=== PATIENT | male | born 1930 | race Caucasian/White ===

== ENCOUNTER 2016-06-09 16:30 | Outpatient (CLI) ==
[2016-06-09 17:43] LABS: BASOPHILS % (AUTO) 0.4 % (0.0-3.0); EOSINOPHILS # (AUTO) 0.1 K/ul (0.0-0.7); EOSINOPHILS % (AUTO) 1.6 % (0.0-7.0); HEMOGLOBIN 15.5 g/dl (14.0-18.0); IMMATURE GRANULOCYTE % (AUTO) 0.4 % (0.0-5.0); LYMPHOCYTES # (AUTO) 1.2 K/uL (0.60-3.4); LYMPHOCYTES % (AUTO) 16.2 (10.0-50.0); MEAN CORPUSCULAR HEMOGLOBIN 32.7 pg (27.0-31.0); MEAN CORPUSCULAR HGB CONC 34.4 (31.8-35.4); MEAN CORPUSCULAR VOLUME 94.9 fl (80.0-94.0); MONOCYTES # (AUTO) 0.6 K/uL (0.4-2.0); MONOCYTES % (AUTO) 7.9 (0-10); NEUTROPHILS # (AUTO) 5.4 K/ul (2.0-6.9); NEUTROPHILS % (AUTO) 73.5; PLATELET COUNT 248 10^3/uL (140-440); RED BLOOD COUNT 4.74 10^6/ul (4.70-6.10); WHITE BLOOD COUNT 7.36 K/ul (4.2-10.2)
[2016-06-09 17:51] LABS: BILIRUBIN,URINE Negative (NEGATIVE); KETONES,URINE Negative (NEGATIVE); LEUKOCYTE ESTERASE ,URINE Negative (NEGATIVE); NITRITE,URINE Negative (NEGATIVE); PH,URINE 5.5 (5-9); PROTEIN,URINE Negative (NEGATIVE); URINE, BLOOD Negative (NEGATIVE)
[2016-06-09 17:53] LABS: ADD URINE MICROSCOPIC NO
[2016-06-09 18:12] LABS: ALBUMIN 3.5 g/dL (3.4-5.0); ALBUMIN/GLOBULIN RATIO 1.25; ANION GAP 10.9; BILIRUBIN,TOTAL 0.68 mg/dL (0.00-1.20); BUN/CREATININE RATIO 25.24; CHOL/HDL RATIO 2.7 (4.5-6.4); CREATININE 1.03 mg/dL (0.60-1.10); POTASSIUM 3.9 mmol/L (3.5-5.1); TOTAL PROTEIN 6.3 g/dL (5.8-8.1)
== END 2016-06-09 16:31 | disposition home or self-care (01) ==
LOC: LAB 16:30
PROVIDERS: ATTEND General Practice
DX: I10 Essential (primary) hypertension (principal); R73.03 Prediabetes; I73.9 Peripheral vascular disease, unspecified; R73.9 Hyperglycemia, unspecified; Z79.899 Other long term (current) drug therapy
CPT/HCPCS: 36415; 80053; 80061; 81001; 83036; 85025

== ENCOUNTER 2016-10-06 12:17 | Outpatient (CLI) ==
[2016-10-06 13:20] LABS: BASOPHILS % (AUTO) 0.4 % (0.0-3.0); EOSINOPHILS # (AUTO) 0.3 K/ul (0.0-0.7); EOSINOPHILS % (AUTO) 3.5 % (0.0-7.0); HEMATOCRIT 44.2 % (42.0-52.0); HEMOGLOBIN 15.2 g/dl (14.0-18.0); IMMATURE GRANULOCYTE % (AUTO) 0.3 % (0.0-5.0); LYMPHOCYTES # (AUTO) 1.3 K/uL (0.60-3.4); LYMPHOCYTES % (AUTO) 17.6 (10.0-50.0); MEAN CORPUSCULAR HEMOGLOBIN 32.7 pg (27.0-31.0); MEAN CORPUSCULAR HGB CONC 34.4 (31.8-35.4); MEAN CORPUSCULAR VOLUME 95.1 fl (80.0-94.0); MONOCYTES # (AUTO) 0.5 K/uL (0.4-2.0); MONOCYTES % (AUTO) 7.1 (0-10); NEUTROPHILS # (AUTO) 5.2 K/ul (2.0-6.9); NEUTROPHILS % (AUTO) 71.1; PLATELET COUNT 186 10^3/uL (140-440); RED BLOOD COUNT 4.65 10^6/ul (4.70-6.10); WHITE BLOOD COUNT 7.33 K/ul (4.2-10.2)
[2016-10-06 13:37] LABS: ALBUMIN 3.4 g/dL (3.4-5.0); ALBUMIN/GLOBULIN RATIO 1.17; ANION GAP 13.5; BILIRUBIN,TOTAL 0.81 mg/dL (0.00-1.20); BUN/CREATININE RATIO 22.82; CALCIUM 9.8 mg/dL (8.2-10.2); CHOL/HDL RATIO 3.1 (4.5-6.4); CREATININE 0.92 mg/dL (0.60-1.10); POTASSIUM 4.5 mmol/L (3.5-5.1); TOTAL PROTEIN 6.3 g/dL (5.8-8.1)
[2016-10-06 18:08] LABS: BILIRUBIN,URINE Negative (NEGATIVE); KETONES,URINE Negative (NEGATIVE); LEUKOCYTE ESTERASE ,URINE Negative (NEGATIVE); NITRITE,URINE Negative (NEGATIVE); PH,URINE 6.5 (5-9); PROTEIN,URINE Negative (NEGATIVE); URINE, BLOOD Negative (NEGATIVE)
[2016-10-06 18:16] LABS: ADD URINE MICROSCOPIC NO
== END 2016-10-06 12:18 | disposition home or self-care (01) ==
LOC: LAB 12:17
PROVIDERS: ATTEND General Practice
DX: I10 Essential (primary) hypertension (principal); R73.03 Prediabetes; I73.9 Peripheral vascular disease, unspecified; E53.8 Deficiency of other specified B group vitamins; H91.93 Unspecified hearing loss, bilateral; M17.11 Unilateral primary osteoarthritis, right knee; M54.9 Dorsalgia, unspecified; Z79.899 Other long term (current) drug therapy
CPT/HCPCS: 36415; 80053; 80061; 81001; 85025

== ENCOUNTER 2017-02-05 14:37 | Outpatient (CLI) ==
[2017-02-05 14:55] LABS: BASOPHILS % (AUTO) 0.5 % (0.0-3.0); EOSINOPHILS # (AUTO) 0.2 K/ul (0.0-0.7); EOSINOPHILS % (AUTO) 4.2 % (0.0-7.0); HEMATOCRIT 45.4 % (42.0-52.0); HEMOGLOBIN 15.6 g/dl (14.0-18.0); IMMATURE GRANULOCYTE % (AUTO) 0.2 % (0.0-5.0); LYMPHOCYTES # (AUTO) 1.1 K/uL (0.60-3.4); LYMPHOCYTES % (AUTO) 20.5 (10.0-50.0); MEAN CORPUSCULAR HEMOGLOBIN 33.1 pg (27.0-31.0); MEAN CORPUSCULAR HGB CONC 34.4 (31.8-35.4); MEAN CORPUSCULAR VOLUME 96.2 fl (80.0-94.0); MONOCYTES # (AUTO) 0.5 K/uL (0.4-2.0); MONOCYTES % (AUTO) 9.3 (0-10); NEUTROPHILS # (AUTO) 3.6 K/ul (2.0-6.9); NEUTROPHILS % (AUTO) 65.3; PLATELET COUNT 213 10^3/uL (140-440); RED BLOOD COUNT 4.72 10^6/ul (4.70-6.10); WHITE BLOOD COUNT 5.46 K/ul (4.2-10.2)
[2017-02-05 14:57] LABS: BILIRUBIN,URINE Negative (NEGATIVE); KETONES,URINE Negative (NEGATIVE); LEUKOCYTE ESTERASE ,URINE Negative (NEGATIVE); NITRITE,URINE Negative (NEGATIVE); PROTEIN,URINE Negative (NEGATIVE); URINE, BLOOD Negative (NEGATIVE)
[2017-02-05 15:01] LABS: ADD URINE MICROSCOPIC NO
[2017-02-05 15:07] LABS: ALBUMIN 3.3 g/dL (3.4-5.0); ALBUMIN/GLOBULIN RATIO 1.06; ANION GAP 12.6; BILIRUBIN,TOTAL 0.83 mg/dL (0.00-1.20); BUN/CREATININE RATIO 24.46; CALCIUM 10.1 mg/dL (8.2-10.2); CREATININE 0.94 mg/dL (0.60-1.10); POTASSIUM 4.6 mmol/L (3.5-5.1); TOTAL PROTEIN 6.4 g/dL (5.8-8.1)
== END 2017-02-05 14:38 | disposition home or self-care (01) ==
LOC: LAB 14:37
PROVIDERS: ATTEND General Practice
DX: I10 Essential (primary) hypertension (principal); I73.9 Peripheral vascular disease, unspecified; R73.03 Prediabetes; Z79.899 Other long term (current) drug therapy
CPT/HCPCS: 36415; 80053; 81001; 85025

== ENCOUNTER 2017-06-09 14:21 | Outpatient (CLI) | payer OTHER | END 2017-06-09 14:22 | disposition home or self-care (01) | LOC: LAB 14:21 | PROVIDERS: ATTEND General Practice | DX: R73.03 Prediabetes (principal); I10 Essential (primary) hypertension; E53.8 Deficiency of other specified B group vitamins; R73.9 Hyperglycemia, unspecified; Z79.899 Other long term (current) drug therapy; Z12.5 Encounter for screening for malignant neoplasm of prostate | CPT/HCPCS: 36415; 80053; 80061; 81001; 85025 ==

== ENCOUNTER 2017-06-12 14:27 | Outpatient (CLI) | payer OTHER ==
--- NOTE | 2017-06-12 14:47 | DI ---
Exam: Two x-rays of the chest. Comparison: 08/03/2013. Reason for exam: Chest pain. FINDINGS: No pneumothorax or pleural effusion. There is blunting of both costophrenic angles with p atchy airspace opacities bilaterally and flattening of the hemidiaphragms. The aorta is tortuous wit hin the thorax. Degenerative disease is seen throughout the thorax with osteophyte formation. Impression: Similar appearing basilar atelectasis/pneumonia in the setting of suspected chronic lung disease.
== END 2017-06-12 14:28 | disposition home or self-care (01) ==
LOC: RAD 14:27
PROVIDERS: ATTEND General Practice
DX: R07.89 Other chest pain (principal)

== ENCOUNTER 2017-07-22 09:13 | Outpatient (CLI) ==
[2017-06-24 18:43] VITALS: BMI 23.8
== END 2017-07-22 09:14 | disposition home or self-care (01) ==
LOC: WOUND 09:13
PROVIDERS: ATTEND Nurse Practitioner Family
DX: L89.893 Pressure ulcer of other site, stage 3 (principal); I10 Essential (primary) hypertension; N18.9 Chronic kidney disease, unspecified

== ENCOUNTER 2017-07-29 09:48 | Outpatient (CLI) | payer OTHER ==
[2017-06-24 18:43] VITALS: BMI 23.8
== END 2017-07-29 09:49 | disposition home or self-care (01) ==
LOC: WOUND 09:48
PROVIDERS: ATTEND Nurse Practitioner Family
DX: L89.893 Pressure ulcer of other site, stage 3 (principal); I10 Essential (primary) hypertension; N18.9 Chronic kidney disease, unspecified
CPT/HCPCS: 11042

== ENCOUNTER 2017-08-05 09:19 | Outpatient (CLI) ==
[2017-06-24 18:43] VITALS: BMI 23.8
== END 2017-08-05 09:20 | disposition home or self-care (01) ==
LOC: WOUND 09:19
PROVIDERS: ATTEND Nurse Practitioner Family
DX: L89.893 Pressure ulcer of other site, stage 3 (principal); I10 Essential (primary) hypertension; N18.9 Chronic kidney disease, unspecified
CPT/HCPCS: 11042

== ENCOUNTER 2017-08-12 09:20 | Outpatient (CLI) | payer OTHER ==
[2017-06-24 18:43] VITALS: BMI 23.8
== END 2017-08-12 09:21 | disposition home or self-care (01) ==
LOC: WOUND 09:20
PROVIDERS: ATTEND Nurse Practitioner Family
DX: L89.893 Pressure ulcer of other site, stage 3 (principal); I10 Essential (primary) hypertension; N18.9 Chronic kidney disease, unspecified
CPT/HCPCS: 11042

== ENCOUNTER 2017-08-19 09:18 | Outpatient (CLI) ==
[2017-06-24 18:43] VITALS: BMI 23.8
== END 2017-08-19 09:19 | disposition home or self-care (01) ==
LOC: WOUND 09:18
PROVIDERS: ATTEND Nurse Practitioner Family
DX: L89.893 Pressure ulcer of other site, stage 3 (principal); I10 Essential (primary) hypertension; N18.9 Chronic kidney disease, unspecified
CPT/HCPCS: 11042; 87070

== ENCOUNTER 2017-08-26 09:14 | Outpatient (CLI) ==
[2017-06-24 18:43] VITALS: BMI 23.8
--- NOTE | 2017-08-26 11:02 | DI ---
EXAM: Four views of the left toes. History: Left toe pressure ulcer. Findings: Atherosclerotic vascular calcifications. No acute fracture or dislocation. There is subc utaneous edema and question soft tissue air within the first digit. No jignesh cortical destruction id entified to suggest osteomyelitis. Impression: 1. No definite radiographic evidence for osteomyelitis. 2. Subcutaneous edema and question soft tissue air within the first digit. 3. If there is concern for osteomyelitis, consider correlation with nuclear medicine study or MRI. 4. Atherosclerotic vascular disease
== END 2017-08-26 09:15 | disposition home or self-care (01) ==
LOC: WOUND 09:14
PROVIDERS: ATTEND Nurse Practitioner Family
DX: L89.893 Pressure ulcer of other site, stage 3 (principal); I10 Essential (primary) hypertension; N18.9 Chronic kidney disease, unspecified

== ENCOUNTER 2017-09-02 09:30 | Outpatient (CLI) ==
[2017-06-24 18:43] VITALS: BMI 23.8
== END 2017-09-02 09:31 | disposition home or self-care (01) ==
LOC: WOUND 09:30
PROVIDERS: ATTEND Nurse Practitioner Family
DX: L89.893 Pressure ulcer of other site, stage 3 (principal); I10 Essential (primary) hypertension; N18.9 Chronic kidney disease, unspecified
CPT/HCPCS: 11042

== ENCOUNTER 2017-09-16 09:16 | Outpatient (CLI) | payer OTHER ==
[2017-06-24 18:43] VITALS: BMI 23.8
== END 2017-09-16 09:17 | disposition home or self-care (01) ==
LOC: WOUND 09:16
PROVIDERS: ATTEND Nurse Practitioner Family
DX: L89.893 Pressure ulcer of other site, stage 3 (principal); I10 Essential (primary) hypertension; N18.9 Chronic kidney disease, unspecified
CPT/HCPCS: 11042

== ENCOUNTER 2017-09-23 09:57 | Outpatient (CLI) | payer OTHER ==
[2017-06-24 18:43] VITALS: BMI 23.8
== END 2017-09-23 09:58 | disposition home or self-care (01) ==
LOC: WOUND 09:57
PROVIDERS: ATTEND Nurse Practitioner Family
DX: L89.893 Pressure ulcer of other site, stage 3 (principal); I10 Essential (primary) hypertension; N18.9 Chronic kidney disease, unspecified
CPT/HCPCS: 36415; 80053; 80061; 85025; 99213

== ENCOUNTER 2017-09-30 09:56 | Outpatient (CLI) ==
[2017-06-24 18:43] VITALS: BMI 23.8
== END 2017-09-30 09:57 | disposition home or self-care (01) ==
LOC: WOUND 09:56
PROVIDERS: ATTEND Nurse Practitioner Family
DX: L89.893 Pressure ulcer of other site, stage 3 (principal); I10 Essential (primary) hypertension; N18.9 Chronic kidney disease, unspecified
CPT/HCPCS: 99211; 99213

== ENCOUNTER 2018-01-26 14:20 | Outpatient (CLI) | payer OTHER ==
[2017-06-24 18:43] VITALS: BMI 23.8
--- NOTE | 2018-01-26 15:00 | CT ---
EXAM: CT of the head without contrast History: Ataxia Comparison: None available. Technique: Multiplanar CT images through the head were obtained without the administration of IV con trast Findings: The visualized paranasal sinuses and mastoid air cells are clear in general. No acute yajaira varial abnormalities. Intracranially the ventricular and cisternal spaces are normal in size, shape and configuration for a patient of this age. No dominant mass or midline shift. No hydrocephalous. No acute intracranial hemorrhage or abnormal extraaxial fluid collections. Impression: No acute intracranial process
== END 2018-01-26 14:21 | disposition home or self-care (01) ==
LOC: RAD 14:20
PROVIDERS: ATTEND General Practice
DX: R26.89 Other abnormalities of gait and mobility (principal)

== ENCOUNTER 2018-05-10 14:31 | Outpatient (CLI) | payer OTHER ==
[2017-06-24 18:43] VITALS: BMI 23.8
== END 2018-05-10 14:32 | disposition home or self-care (01) ==
LOC: LAB 14:31
PROVIDERS: ATTEND General Practice
DX: I73.9 Peripheral vascular disease, unspecified (principal); I10 Essential (primary) hypertension; R73.03 Prediabetes; E53.8 Deficiency of other specified B group vitamins; Z79.899 Other long term (current) drug therapy
CPT/HCPCS: 36415; 80053; 80061; 81001; 85025

== ENCOUNTER 2018-05-14 15:11 | Outpatient (CLI) ==
[2017-06-24 18:43] VITALS: BMI 23.8
== END 2018-05-14 15:12 | disposition home or self-care (01) ==
LOC: LAB 15:11
PROVIDERS: ATTEND General Practice
DX: I49.9 Cardiac arrhythmia, unspecified (principal); Z79.899 Other long term (current) drug therapy
CPT/HCPCS: 93005; 93010

== ENCOUNTER 2018-09-26 18:30 | Inpatient (IN) ==
--- NOTE | 2018-09-26 19:24 | CT ---
EXAM: CT chest without contrast. HISTORY: Cough and fever. PROCEDURE: Contiguous axial CT images of the chest without contrast with coronal and sagittal reform ats. FINDINGS: The heart is within normal limits in size. The thoracic aorta is within normal limits in d iameter. There are calcified mediastinal and hilar lymph nodes. There is left basilar consolidation , consistent with pneumonia. There is minimal right basilar atelectasis and/or pneumonia. There are degenerative changes in the spine. Impression: Left basilar consolidation, consistent with pneumonia. Minimal right basilar atelectasis and/or pneumonia.
--- NOTE | 2018-09-26 19:36 | ED.PDOC ---
General ED Provider: Dr. TAE POE-ER Chief Complaint: Weakness Stated Complaint: hes had fever, cough and weakness Time Seen by Physician: 18:45 Mode of Arrival: Wheelchair Information Source: Patient, Family Exam Limitations: No limitations Primary Care Provider: [facility] Nursing and Triage Documentation Reviewed and Agree: Yes Does patient meet sepsis criteria?: No System Inflammatory Response Syndrome: Not Applicable Sepsis Protocol: For patient's 13 years and over: Temp is 96.8 and below OR 101 and greater Pulse >90 BPM Resp >20/minute Acutely Altered Mental Status Are patient's symptoms suggestive of a new infection, such as: -Pneumonia -Skin, Soft Tissue -Endocarditis -UTI -Bone, Joint Infection -Implantable Device -Acute Abdominal Infection -Wound Infection -Meningitis -Blood Stream Catheter Infection -Unknown Respiratory Complaint Exam - Respiratory Complaint/Exam Onset/Duration: 3 days Symptoms Are: Still present Timing: Constant Initial Severity: Mild Current Severity: Mild Location: Chest Character: Reports: Non-productive cough Aggravating: Reports: URI Alleviating: Reports: None. Denies: Spontaneous resolution Associated Signs and Symptoms: Reports: Fever, URI. Denies: Rapid breathing, Dyspnea Home Oxygen Use: No Recent Stress Test: No Recent Echo/LV Function: No Current Antibiotic Use: No Current Asthma Medication Use: No Respiratory Distress: None Inadequate Respiratory Effort: No Dysphagia Present: No Stridor Present: No JVD Present: No Accessory Muscle Use: No Retractions: Not Present Diminished Breath Sounds: No Sinus Tenderness: None Grunting Respirations: No Kussmaul Respirations: No Differential Diagnoses: Pneumonia Non-Traumatic Chest Pain Syncope: EKG Performed Review of Systems - Review Of Systems Constitutional: Reports: Chills, Fever, Weakness Eyes: Reports: No symptoms Ears, Nose, Mouth, Throat: Reports: No symptoms Respiratory: Reports: Cough Cardiac: Reports: No symptoms GI: Reports: No symptoms : Reports: No symptoms Musculoskeletal: Reports: No symptoms Skin: Reports: No symptoms Neurological: Reports: No symptoms, Weakness Endocrine: Reports: No symptoms Hematologic/Lymphatic: Reports: No symptoms All Other Systems: Reviewed and Negative Past Medical History - Past Medical History Previously Healthy: No Endocrine: Reports: Unknown, Other Cardiovascular: Reports: Unknown Respiratory: Reports: Unknown Hematological: Reports: Unknown Gastrointestinal: Reports: Unknown Genitourinary: Reports: Unknown Neuro/Psych: Reports: Unknown Musculoskeletal: Reports: Unknown Cancer: Reports: Unknown - Surgical History General Surgical History: Reports: Unknown - Family History Family History: Reports: Unknown - Social History Smoking Status: Never smoker Hx Substance Use: No Alcohol Screening: None Physical Exam - Physical Exam Appearance: Well-appearing, No pain distress, Well-nourished Eyes: MINESH, EOMI, Conjunctiva clear ENT: Ears normal, Nose normal, Oropharynx normal Neck: Supple Respiratory: Crackles, Rhonchi Cardiovascular: RRR, Pulses normal, No rub, No murmur GI/: Soft, Nontender, No masses, Bowel sounds normal, No Organomegaly Musculoskeletal: Normal strength Skin: Warm, Dry, Normal color Neurological: Sensation intact Psychiatric: Affect appropriate, Mood appropriate Interpretation - Radiology Interpretation Radiology Interpretation By: Radiologist Radiology Results: Positive Exam Interpreted: CT Scan - EKG Interpretation Time of EKG #1: 19:36 Rate: Normal Rhythm: Sinus Ectopy: None [place]: NL ST Segment: Normal Interpretation: nsr Physician Notification - Case Discussed Physician Notified: dr shelby Time of Notification: 19:37 Critical Care Note - Critical Care Note Total Time (mins): 0 Course - Course Hematology/Chemistry: 09/26/18 18:53 09/26/18 18:53 Orders, Labs, Meds: Lab Review 09/26/18 09/26/18 09/26/18 18:43 18:53 18:53 WBC 16.26 H RBC 4.53 L Hgb 14.6 Hct 42.3 MCV 93.4 MCH 32.2 H MCHC 34.5 RDW Coeff of Jordyn 13.2 Plt Count 170 Immature Gran % (Auto) 0.9 Neut % (Auto) 88.6 Lymph % (Auto) 2.8 L [place] % (Auto) 7.5 Eos % (Auto) 0.1 Baso % (Auto) 0.1 Immature Gran # (Auto) 0.2 Neut # (Auto) 14.4 H Lymph # (Auto) 0.5 L [place] # (Auto) 1.2 Eos # (Auto) 0.0 Baso # (Auto) 0.0 Puncture Site Rbrach O2 Saturation 94.0 L ABG pH 7.482 H ABG pCO2 27.4 L ABG pO2 63.0 L ABG HCO3 20.5 L ABG Total CO2 21 L ABG Base Excess -3 L Nathony Test + FiO2 % 21.0 Sodium 131.6 L Potassium 3.97 Chloride 98.8 Carbon Dioxide 21.9 L Anion Gap 14.87 BUN 18.1 Creatinine 0.93 Estimated GFR (MDRD) 77.00 BUN/Creatinine Ratio 19.46 Glucose 154.3 H Lactic Acid Calcium 9.02 Total Bilirubin 0.95 AST 26.9 ALT 20.5 Alkaline Phosphatase 65.5 Total Creatine Kinase CK-MB (CK-2) CK-MB (CK-2) % Troponin I Total Protein 6.50 Albumin 3.61 Globulin 2.89 Albumin/Globulin Ratio 1.24 Procalcitonin 09/26/18 09/26/18 09/26/18 18:53 18:53 18:53 WBC RBC Hgb Hct MCV MCH MCHC RDW Coeff of Jordyn Plt Count Immature Gran % (Auto) Neut % (Auto) Lymph % (Auto) [place] % (Auto) Eos % (Auto) Baso % (Auto) Immature Gran # (Auto) Neut # (Auto) Lymph # (Auto) [place] # (Auto) Eos # (Auto) Baso # (Auto) Puncture Site O2 Saturation ABG pH ABG pCO2 ABG pO2 ABG HCO3 ABG Total CO2 ABG Base Excess Anthony Test FiO2 % Sodium Potassium Chloride Carbon Dioxide Anion Gap BUN Creatinine Estimated GFR (MDRD) BUN/Creatinine Ratio Glucose Lactic Acid 1.86 Calcium Total Bilirubin AST ALT Alkaline Phosphatase Total Creatine Kinase 126.1 CK-MB (CK-2) 2.450 H CK-MB (CK-2) % 1.9400 Troponin I < 0.012 Total Protein Albumin Globulin Albumin/Globulin Ratio Procalcitonin 0.35 Orders Category Date Time Status ADMIT PATIENT INPATIENT .TO [facility] (MONITORED BED) ADMISSION 09/26/18 19: 38 Active ABG DRAW REQUEST Stat CARDIO 09/26/18 18:43 Completed EKG-(ED ONLY) Stat CARDIO 09/26/18 18:43 Completed NEBULIZER TREATMENT Stat CARDIO 09/26/18 19:41 Ordered OXYGEN Routine CARDIO 09/26/18 19:39 Ordered ACTIVITY .BR with BRP CARE 09/26/18 19:39 Active INTAKE & OUTPUT Q8HR CARE 09/26/18 19:39 Active TELEMETRY MONITORING TELE CARE 09/26/18 19:38 Active VITAL SIGNS Q4HR CARE 09/26/18 19:39 Active VITAL SIGNS Q8HR CARE 09/26/18 19:39 Active REGULAR DIET DIETARY 09/26/18 Breakfast Ordered ED APPLIANCE ADJUSTER APPLIED .ONCE EMERGENCY 09/26/18 18:43 Active ED IV/MEDIPORT/POWERPORT .ONCE EMERGENCY 09/26/18 18:43 Active ABG Stat LAB 09/26/18 18:43 Completed BLOOD CULTURE (ED ONLY) Stat LAB 09/26/18 18:53 Received CBC W/ AUTO DIFF DAILY@0600 LAB 09/27/18 06:00 Ordered CBC W/ AUTO DIFF DAILY@0600 LAB 09/28/18 06:00 Ordered CBC W/ AUTO DIFF Stat LAB 09/26/18 18:53 Completed COMPREHENSIVE METABOLIC PANEL DAILY@0600 LAB 09/27/18 06:00 Ordered COMPREHENSIVE METABOLIC PANEL DAILY@0600 LAB 09/28/18 06:00 Ordered COMPREHENSIVE METABOLIC PANEL Stat LAB 09/26/18 18:53 Completed CREATINE KINASE Stat LAB 09/26/18 18:53 Completed LACTIC ACID Stat LAB 09/26/18 18:53 Completed PROCALCITONIN Stat LAB 09/26/18 18:53 Completed TROPONIN I Stat LAB 09/26/18 18:53 Completed URINALYSIS C & S IF INDICATED Stat LAB 09/26/18 18:43 Uncollected 0.9 % Sodium Chloride [Saline Flush] MEDS 09/26/18 18:43 Active 1 syr IVF PRN PRN Acetaminophen [Tylenol] MEDS 09/26/18 19:39 Ordered 650 mg PO Q4H PRN Albuterol Sulfate 0.042% Neb [Albuterol 0.042% Neb] MEDS 09/26/18 21:00 Ordered 1 vial NEB QID Aspirin [Aspirin EC] MEDS 09/27/18 09:00 Ordered 81 mg PO DAILY Ceftriaxone 1 gm Vial [Rocephin 1 gm Vial] 1 gm MEDS 09/26/18 20:00 Ordered 0.9 % Sodium Chloride [Sodium Chloride] 50 ml IV DAILY Diclofenac Sodium MEDS 09/27/18 09:00 Ordered 75 mg PO DAILY Donepezil HCl [Aricept] MEDS 09/27/18 09:00 Ordered 10 mg PO DAILY Doxycycline Hyclate Inj [Doxy-100] 100 mg MEDS 09/26/18 21:00 Ordered 0.9 % Sodium Chloride [Sodium Chloride] 100 ml IV Q12HR Enoxaparin Sodium [Lovenox] MEDS 07/22/19 09:00 Ordered 40 mg SUBCUT DAILY Gabapentin [Neurontin] MEDS 09/26/18 21:00 Ordered 200 mg PO BID Losartan Potassium [Losartan Potassium] MEDS 09/26/18 21:00 Ordered 50 mg PO BID Memantine HCl [Namenda] MEDS 09/26/18 21:00 Ordered 10 mg PO BID Metoprolol Tartrate [Lopressor] MEDS 09/26/18 21:00 Ordered 12.5 mg PO BID Sodium Chloride 0.9% [Sodium Chloride] 1,000 ml MEDS 09/26/18 20:00 Ordered IV 40 mls/hr RESUSCITATION STATUS Routine OTHERS 09/26/18 19:[address] CHEST W/O CONTRAST Stat RADS 09/26/18 18:44 Completed Medications Generic Name Dose Route Start Last Admin Trade Name Freq PRN Reason Stop Dose Admin Acetaminophen 650 mg 09/26/18 19:39 Tylenol PO Q4H PRN Mild Pain Albuterol Sulfate 1 vial 09/26/18 21:00 Albuterol 0.042% Neb NEB QID DARIO Aspirin 81 mg 09/27/18 09:00 Aspirin Ec PO DAILY [facility] Diclofenac Sodium 75 mg 09/27/18 09:00 Diclofenac Sodium PO DAILY [facility] Donepezil HCl 10 mg 09/27/18 09:00 Aricept PO DAILY [facility] Enoxaparin Sodium 40 mg 09/27/18 09:00 Lovenox SUBCUT DAILY [facility] Gabapentin 200 mg 09/26/18 21:00 Neurontin PO BID [facility] Ceftriaxone Sodium 1 gm/ 50 mls @ 75 mls/hr 09/26/18 20:00 Sodium Chloride IV 09/29/18 19:59 DAILY DARIO Doxycycline Hyclate 100 mg/ 100 mls @ 50 mls/hr 09/26/18 21:00 Sodium Chloride IV 09/29/18 20:59 Q12HR DARIO Sodium Chloride 1,000 mls @ 40 mls/hr 09/26/18 20:00 Sodium Chloride IV .Q25H DARIO Memantine 10 mg 09/26/18 21:00 Namenda PO BID DARIO Metoprolol Tartrate 12.5 mg 09/26/18 21:00 Lopressor PO BID [facility] Non-Formulary Medication 50 mg 09/26/18 21:00 Losartan Potassium [Losartan Potassium] PO BID DARIO Sodium Chloride 1 syr 09/26/18 18:43 Saline Flush IVF PRN PRN To flush IV Vital Signs: Temp Pulse Resp BP Pulse Ox 09/26/18 18:31 99.8 F H 87 20 139/77 92 L Departure - Departure Time of Disposition: 19:37 Disposition: ADMITTED INPATIENT Discharge Problem: Pneumonia Qualifiers: Pneumonia type: due to unspecified organism Laterality: left Lung location: lower lobe of lung Qualified Code(s): J18.1 - Lobar pneumonia, unspecified organism Instructions: Community Acquired Pneumonia (ED) Condition: Good Pt referred to PMD for follow-up: Yes IPMP verified?: No Allergies/Adverse Reactions: Allergies No Known Allergies Allergy (Verified 09/26/18 18:38) Home Medications: Ambulatory Orders Aspirin [Aspir 81] 81 mg PO DAILY 01/08/15 Donepezil HCl 10 mg PO DAILY 01/08/15 Memantine HCl 10 mg PO BID 01/08/15 Multivitamin [Multi-Vitamin Daily] 1 each PO DAILY 01/08/15 Diclofenac Sodium 75 mg PO DAILY tab-cap 06/12/17 Metoprolol Tartrate [Lopressor] 12.5 mg PO BID 09/26/18 Disposition Discussed With: Patient, Family
[2018-09-26] MEDS ORDERED: TYLENOL PO PRN (19:39)
[2018-09-26] MEDS ORDERED: ROCEPHIN 1 GM VIAL 1 GM in SODIUM CHLORIDE 50 ML IV SCH (20:00)
[2018-09-26] MEDS ORDERED: SODIUM CHLORIDE 1,000 ML IV SCH (20:00)
[2018-09-26] MEDS ORDERED: ROCEPHIN 1 GM VIAL ONE (21:18)
[2018-09-26 21:25] VITALS: BMI 24.5
[2018-09-26] MEDS: COZAAR PO SCH (21:30)
[2018-09-26] MEDS: NEURONTIN PO SCH (21:30)
[2018-09-26] MEDS: LOPRESSOR PO SCH (21:30)
[2018-09-26] MEDS: NAMENDA PO SCH (21:30)
[2018-09-26] MEDS: DOXY-100 100 MG in SODIUM CHLORIDE 100 ML IV SCH (21:31)
[2018-09-26] MEDS ORDERED: ROCEPHIN 1 GM/50 ML D5W 1 GM in PREMIX 50 ML D5W 1 BAG IV STA (21:45)
[2018-09-26] MEDS: ALBUTEROL 0.042% NEB NEB SCH (21:55)
[2018-09-27] MEDS ORDERED: ROCEPHIN 1 GM/50 ML D5W 1 GM in PREMIX 50 ML D5W 1 BAG IV STA (02:59)
[2018-09-27] MEDS ORDERED: ROCEPHIN 1 GM/50 ML D5W 50 ML IV ONE (03:44)
[2018-09-27] MEDS: ALBUTEROL 0.042% NEB NEB SCH ×4 (04:50→20:45)
[2018-09-27] MEDS ORDERED: DICLOFENAC SODIUM PO SCH (09:00)
[2018-09-27] MEDS: ROCEPHIN 2 GM/50 ML D5W 2 GM in PREMIX 50 ML D5W 1 BAG IV SCH (09:27)
[2018-09-27] MEDS: ASPIRIN EC PO SCH (09:30)
[2018-09-27] MEDS: LOPRESSOR PO SCH ×2 (09:31→21:15)
[2018-09-27] MEDS: NAMENDA PO SCH ×2 (09:31→21:16)
[2018-09-27] MEDS: NEURONTIN PO SCH ×2 (09:31→21:15)
[2018-09-27] MEDS: ARICEPT PO SCH (09:32)
[2018-09-27] MEDS: COZAAR PO SCH ×2 (09:32→21:14)
[2018-09-27] MEDS: LOVENOX SUBCUT SCH (09:34)
[2018-09-27] MEDS: DOXY-100 100 MG in SODIUM CHLORIDE 100 ML IV SCH ×2 (10:18→21:19)
--- NOTE | 2018-09-27 11:49 | RS.PTINEVL ---
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 pt is willing to try with PT. - Level of function Prior to this admission, the patient could do the following:: Independent Selfcare, Independent ADL's, Independent Ambulation, Drive Current Level of Function: Partially Dependent Current Equipment Used at Home: cane, rollling walker. Interventions - Objective Patient Orientation: Person, Place, Time, Situation Current Interventions: IV's, Telemetry Observation: pt with erythema noted to L lower leg Range of Motion - ROM Right Upper Extremity AROM: WFL's Left Upper Extremity AROM: WFL's Right Lower Extremity AROM: WFL's Left Lower Extremity AROM: Moderate limitation (L knee fused into ext.) Muscle Strength - Muscle Strength Right Upper Extremity Strength: Mild Weakness (grossly 4/5) Left Upper Extremity Strength: Mild Weakness (grossly 4/5) Right Lower Extremity Strength: Mild Weakness (hip flex 4/5, knee flex/ext 4+/5 , ankle DF/PF 4/5) Left Lower Extremity Strength: Mild Weakness (hip flex 4/5, knee flex 0, ext 4/5 , ankle DF/PF 4/5) Sensation - Sensation Right Upper Extremity Sensation: Intact/Normal Left Upper Extremity Sensation: Intact/Normal Right Lower Extremity Sensation: Intact/Normal Left Lower Extremity Sensation: Intact/Normal Palpation Palpation Findings: None/Normal Balance - Sitting Balance and Reactions Static Sitting Balance: Fair Dynamic Sitting Balance: Fair - Standing Balance and Reactions Static Standing Balance: Poor Dynamic Standing Balance: Poor Standing Equilibrium Reactions: Delayed Left, Delayed Right Standing Protective Reactions: Delayed Left, Delayed Right Functional Mobility - Bed Mobility Rolling R/L: CGA Supine to Sit: CGA - Transfers Sit to Stand: Min Assist, 2 person assist Stand to Sit: Min Assist, 2 person assist - Safety Awareness Safety Awareness: Fair SHER INDEX SCORE: n/a Ambulation - Ambulation Assistive Device Used: Rolling Walker Orthotic/Prosthetic Device: No Distance: 20ft Assistance needed with Ambulation: Min Assist, 2 person assist Gait Deviations: Forward posture, Short stride, Deviates from path Ambulation Comments: pt amb with flexed posture, decreased step length. pt amb with R hip hiking due to no knee flex due to knee fused. Factors Affecting Ambulation: Decreased Balance, Weakness, Decreased ROM, Decreased Safety, Limited Endurance Treatment time - Time with patient Length of Evaluation: 21 Total treatment time: 24 Patient Education - Education Patient Education: Activity Modification, Education of Plan of Care Teaching Recipient: Patient Teaching Methods: Discussion (discussion regarding POC) Assessment - Assessment Problem List:: Decreased level of function, Requires training/education, Decreased safety/Risk of falls, Weakness Rehab Potential: Good Further Therapy Indicated?: Yes Candidate for Swing Bed for Therapy Services?: Would need to reassess pt at a later date Evaluation Complexity: HISTORY: Medium, EXAM OF BODY SYSTEMS: Medium, CLINICAL PRESENTATION: Medium, CLINICAL DECISION MAKING: Medium Short Term Goals GOAL #1: pt demonstrate independence with rolling and scooting in bed Goal to be met by: 09/29/18 GOAL #2: pt transfer sup to/from sit SBA Goal to be met by: 09/29/18 GOAL #3: Transfer sit to/from stand min to CGA x 1 Goal to be met by: 09/29/18 GOAL #4: pt amb with rwx 75ft with CGA to min x 1 Goal to be met by: 09/29/18 Therapeutic Recreation Assistant Goals GOAL #1: pt ascend/descend 2 steps to enter home CGA Goal to be met by: 10/01/18 GOAL #2: pt amb functional household distance with rwx SBA Goal to be met by: 10/01/18 GOAL #3: pt transfer sit to/from stand SBA Goal to be met by: 10/01/18 Plan Plan of Care: Therapeutic EX, Therapeutic Activity Other:: gait training Frequency of Treatment: 1-2 X day, as tolerated Duration of Treatment: 5 days Anticipated Discharge Destination: Home Treatment Diagnosis (ICD 10 Codes): R 26.2 difficulty walking. R 26.81 balance impaired Has the Physician been added for Co-signature?: Yes
--- NOTE | 2018-09-27 13:48 | RS.OTINEVL ---
Subjective - Patient information Date of Evaluation: 09/27/18 Date of Arrival on Unit: 09/26/18 Diagnosis: Pneumonia, SOA, Weakness PRECAUTIONS: At risk for falls. SOA, WEakness Usual Living Arrangement: Alone Living Arrangement Comments: Pt lives alone. He is able to drive to the store and complete his shopping independently before his illness. Pt has a house keeper that helps him with cleaning. Home Environment: House, Stairs (few), No rail Medical History: Hypertension Medical History Comments:: Pt had prostate CA 10 years ago. Cholecystectomy, [place] , hearing aids, HTN, glasses, spasms in the right ribs Surgical History: Knee Replacement, Other Surgical History Comments:: Pt has had several surgeries on his Left knee and has a vijay in it now. Pt now cannot flex his knee. Pt had prostate CA surgery 10 years ago. Pt had left groing hernia repair, - Level of function Prior to this admission, the patient could do the following:: Independent Selfcare, Independent ADL's, Independent Ambulation, Drive Abilities prior to this admission: Pt was able to ambulate better and was stronger before this last illness. Pt feels he is very weak and needs assistance for functional mobility. Current Level of Function: Partially Dependent Current Equipment Used at Home: cane, rollling walker. Pain Assessment - Pain Pain Score: 0 Interventions - Objective Patient Orientation: Person, Place, Time, Situation Current Interventions: IV's, Telemetry Observation: Pt is weak and takes extra time to ambulate with RW. Pt becomes SOA with functional mobility and self cares. Interventions - ROM Right Upper Extremity AROM: WFL's Left Upper Extremity AROM: WFL's - Strength Right Upper Extremity Strength: Mild Weakness Left Upper Extremity Strength: Mild Weakness - Sensation Right Upper Extremity Sensation: Intact/Normal Left Upper Extremity Sensation: Intact/Normal Balance - Sitting Balance Static Sitting Balance: Fair Dynamic Sitting Balance: Fair - Standing Balance Static Standing Balance: Poor Dynamic Standing Balance: Poor ADL Skills - Self Feeding Self Feeding: Independent - Grooming Grooming: Supervision - Bathing Bathing UE: Set Up Only Bathing LE: Supervision - Dressing Dressing UE: Set Up Only Dressing LE: Min Assist - Toilet Management Toileting Management: Min Assist Functional Mobility - Bed Mobility Rolling R/L: Independent Scooting: Independent Supine to Sit: CGA Sit to Supine: CGA - Transfers Sit to Stand: Mod Assist Stand to Sit: Mod Assist Stand Pivot Transfers: Mod Assist - Ambulation Weight Bearing Status: FWB Assistive Device Used: Rolling Walker Assistance needed with Ambulation: Mod Assist - Safety Awareness Safety Awareness: Fair SHER INDEX SCORE: . Additional Treatment Performed - Time with patient Length of Evaluation: 20 Total treatment time: 26 Activities Would you enjoy group activities?: Yes Do you have difficulty with your vision?: Yes What types of things do you enjoy doing? Any Hobbies?: TV, Work on Cars Patient Interests:: Watching Television, Visiting/Socializing Patient Education Patient Education: Education of diagnosis, Home Exercise Program, Home Safety, Education of Plan of Care Teaching Recipient: Patient Teaching Methods: Demonstration Assessment Problem List:: Decreased level of function, Requires training/education, Decreased safety/Risk of falls, Weakness Rehab Potential: Good Further Therapy Indicated?: Yes Evaluation Complexity: HISTORY: Medium, EXAM OF BODY SYSTEMS: Medium, CLINICAL DECISION MAKING: Medium Short Term Goals - Goals GOAL 1: Pt to increase BUE strength to 4/5. Goal to be met by: 09/30/18 GOAL 2: Pt to increase sit to stand to Min A. with RW. Goal to be met by: 09/30/18 GOAL 3: Pt to be CGA with self cares. Goal to be met by: 09/30/18 Fdc Goals GOAL 1: Pt to increase BUE strength to 4+/5. Goal to be met by: 10/04/18 GOAL 2: Pt to increase sit to stand to Mod-I with RW. Goal to be met by: 10/04/18 GOAL 3: Pt to be modified (I) with self cares. Goal to be met by: 10/04/18 Plan Plan of Care: Therapeutic EX, Neuromuscular Re-Educ, Therapeutic Activity, Self- Care/Home Management Frequency of Treatment: 1-2 X day, as tolerated Duration of Treatment: 1 Week Anticipated Discharge Destination: Home Treatment Diagnosis (ICD 10 Codes): M62.81 Muscle weakness, Z74.1 Need for assistance with personal care. Has the Physician been added for Co-signature?: Yes
[2018-09-27] MEDS ORDERED: VANCOMYCIN 1,000 MG in SODIUM CHLORIDE 200 ML IV SCH (22:00)
[2018-09-27] MEDS ORDERED: VANCOMYCIN 1.5 GM in SODIUM CHLORIDE 500 ML IV SCH (23:00)
[2018-09-28] MEDS: ALBUTEROL 0.042% NEB NEB SCH ×4 (04:55→20:11)
[2018-09-28] MEDS: ROCEPHIN 2 GM/50 ML D5W 2 GM in PREMIX 50 ML D5W 1 BAG IV SCH (08:42)
[2018-09-28] MEDS: NAMENDA PO SCH ×2 (08:42→14:45)
[2018-09-28] MEDS: COZAAR PO SCH ×2 (08:42→20:12)
[2018-09-28] MEDS: ASPIRIN EC PO SCH (08:42)
[2018-09-28] MEDS: LOPRESSOR PO SCH ×2 (08:42→20:11)
[2018-09-28] MEDS: NEURONTIN PO SCH ×2 (08:42→20:11)
[2018-09-28] MEDS: ARICEPT PO SCH (08:42)
[2018-09-28] MEDS: LOVENOX SUBCUT SCH (08:43)
--- NOTE | 2018-09-28 10:20 | PN ---
DATE OF SERVICE: 09/27/18 SUBJECTIVE: 88 year old male was admitted to the hospital because of pneumonia left side and minimal right. The patient does have some rales at both bases fine. No expiratory wheezing. HEART: Audible and slightly irregular. The patient is on Telemetry The patient claims that he is feeling better. The left leg however is warm to touch and red. This patient has an intramedullary vijay that stabilizes the knee. 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 It is warm to touch and red compared to the right. I am not sure whether this infection is coming from. An x-ray of the leg, ankle and foot is order today. There is no skin breaks noted. The patient is receiving Ceftriaxone 2 grams every 24 hours and Doxycycline 100mg Q 12 hours. His sugar was in a controlled level. Fasting today is 139.2. Procalcitonin on admission was 0.35. We will obtain another Procalcitonin today because of the swelling and redness of the left leg and foot. I am concerned about the left leg and he may need to be transferred to another facility for this problem. His EGFR is 68 today. We will probably discontinue the Doxycycline and given him Vancomycin 1gram Q 12 hours. We will see if this will improve the problem in the left leg. СВЕТЛАНА
--- NOTE | 2018-09-28 14:14 | DI ---
EXAM: Three views of the left knee. History: Left knee pain and swelling. Findings: No acute fracture or dislocation. Osteopenia. Some type of stimulator device is seen in place. Hardware is seen traversing the left knee joint with osseous effusion. Nonspecific soft tiss ue calcifications. There are also atherosclerotic vascular calcifications. Surgical clips are seen within the lower pelvis. There is skin thickening along the medial aspect of the leg. Impression: No acute osseous abnormality. Other findings as detailed above
--- NOTE | 2018-09-28 14:15 | DI ---
EXAM: LEFT ANKLE 3 VIEWS HISTORY: Redness and warmth FINDINGS: Bones are significantly demineralized. Partial visualization of distal tibial intramedull marely stabilization hardware which appears intact. There is no acute fracture identified. No joint ef fusion or evidence of bony destruction. Soft tissues reveal vascular calcifications although were ot herwise grossly within normal limits radiographically. IMPRESSION: 1. No obvious acute radiographic findings.
--- NOTE | 2018-09-28 14:20 | DI ---
EXAM: LEFT FOOT, 3 VIEWS HISTORY: Redness and warmth FINDINGS: Compared to 06/24/2017. Bones are significantly demineralized. Diffuse arthropathy is no efra most apparent at the mid foot dorsally where there is bony spurring. No displaced fracture or roberto int dislocation is seen. There is no joint effusion or soft tissue radiopaque foreign body/gas colle ction. IMPRESSION: 1. Demineralization and arthropathy.
--- NOTE | 2018-09-28 14:37 | DI ---
EXAM: Two views of the left tibia and fibula. History: Left leg pain and swelling. Findings: Grossly intact hardware seen traversing the left knee joint. Osteopenia. No acute fractu re or dislocation. Hypertrophic osseous changes involving the medial and lateral malleolus compatibl e with old ligamentous injury. Atherosclerotic vascular calcifications. Soft tissue calcifications are seen at the knee. There is mild diffuse subcutaneous edema. Impression: 1. No acute osseous findings. 2. Mild diffuse subcutaneous edema. 3. Grossly intact hardware. 4. Atherosclerotic vascular disease
[2018-09-28] MEDS: VANCOMYCIN 1.5 GM in SODIUM CHLORIDE 500 ML IV SCH (20:11)
[2018-09-29] MEDS: ALBUTEROL 0.042% NEB NEB SCH ×4 (04:34→20:05)
[2018-09-29] MEDS: LOPRESSOR PO SCH ×2 (08:26→20:39)
[2018-09-29] MEDS: ROCEPHIN 2 GM/50 ML D5W 2 GM in PREMIX 50 ML D5W 1 BAG IV SCH (08:27)
[2018-09-29] MEDS: ARICEPT PO SCH (08:27)
[2018-09-29] MEDS: NEURONTIN PO SCH ×2 (08:27→20:39)
[2018-09-29] MEDS: COZAAR PO SCH ×2 (08:27→20:40)
[2018-09-29] MEDS: LOVENOX SUBCUT SCH (08:28)
[2018-09-29] MEDS: NAMENDA PO SCH ×2 (09:00→13:56)
--- NOTE | 2018-09-29 13:38 | US ---
EXAM: ULTRASOUND LOWER EXTREMITY VENOUS DOPPLER EXAM HISTORY: Pain and tenderness. FINDINGS: Left lower extremity venous Doppler exam. Real time thomson-scale, Doppler spectral analysis and color-flow Doppler imaging performed. The veins targeted for evaluation include the common femo ral, greater saphenous, profundus, femoral, popliteal, peroneal, anterior tibial and posterior tibial . The evaluated veins demonstrated normal spontaneous flow and compression without evidence of thr ombosis. IMPRESSION: No venous thrombosis identified within the areas evaluated.
--- NOTE | 2018-09-29 14:44 | PN ---
DATE OF SERVICE: 09/26/18 ADMISSION NOTES SUBJECTIVE: The patient did not feel well since about three days ago. He felt bad and coughed and fever. He had pain on the right lateral chest wall, lower. The patient had shortness of breath on exertion and just not able to get up and quite weak this morning. He was then brought to to the emergency room and the patient was noted to have a low grade temperature 99.8. The fever at home was as high as 101.5. The patient is alert and somewhat jittery. He does recognize me. LUNGS: Rales at the left base. No wheezing. HEART: Audible and regular with good tones. The patient does not have a urinalysis at this time. WBC is moderately elevated and the Procalcitonin still is within unremarkable limits. The patient had 1 gram of Rocephin in the emergency room and also Doxycycline Q 12 hours. The patient denies any tick bite. Rocephin will be increased to 2 grams daily. His EGFR is 77. Pneumonitis left lower lobe. MTDD
[2018-09-29] MEDS: VANCOMYCIN 1.5 GM in SODIUM CHLORIDE 500 ML IV SCH (20:38)
[2018-09-29] MEDS: ASPIRIN EC PO SCH (20:39)
[2018-09-30] MEDS: ALBUTEROL 0.042% NEB NEB SCH ×4 (04:45→20:15)
[2018-09-30] MEDS: ARICEPT PO SCH (08:15)
[2018-09-30] MEDS: NEURONTIN PO SCH ×2 (08:16→20:47)
[2018-09-30] MEDS: COZAAR PO SCH ×2 (08:16→20:47)
[2018-09-30] MEDS: NAMENDA PO SCH ×2 (08:16→14:56)
[2018-09-30] MEDS: LOPRESSOR PO SCH ×2 (08:16→20:47)
[2018-09-30] MEDS: LOVENOX SUBCUT SCH (08:16)
[2018-09-30] MEDS ORDERED: ROCEPHIN 2 GM/50 ML D5W 2 GM in PREMIX 50 ML D5W 1 BAG IV SCH (09:00)
--- NOTE | 2018-09-30 11:05 | HP ---
DATE OF SERVICE: 09/26/18 CHIEF COMPLAINT: Weakness. HISTORY OF PRESENT ILLNESS: Per review of ER records, Dr. Briones on September 26, 2018, the patient arrived to the Emergency Department with complaint of weakness. He also reported fever and cough. He arrived per wheelchair with the patient's family. His temperature on admission was 96.8. He had complained of a nonproductive cough. Also complained of some dyspnea. Also complained of some chills. Per review of Dr. Cummins's initial progress note, the patient was admitted to the hospital because of pneumonia of the left side and minimal to the right and the patient did have some rales at both bases that were fine without any expiratory wheezing. On initial progress note on exam the patient reported that he was feeling better per Dr. Cummins. He did have some issues with the left lower extremity that was warm to touch and red. The patient has a history of a intramedullary kim that stabilizes the knee. He had a left knee replacement that had gotten infected so a kim was inserted for him to ambulate. The left lower extremity was warm to touch and red compared to the right. Dr. Cummins was not sure where the infection was coming from. X-ray was ordered of the leg, ankle and foot on admission. There was no skin breakdown noted. Decision was made to admit the patient to the hospital for further evaluation and workup for the pneumonia and concerns for the left lower extremity. 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 He has a persistent incontinence of urine. He has marked decreased hearing and has a hearing aid. He has a history of bifrontal headaches. Right temporal skin lesion Degenerative joint disease Trigeminal neuralgia to the left History of [place] Spotted Fever Chronic kidney disease Exertional dyspnea Hypertension Prediabetes Peripheral arterial disease FAMILY HISTORY: Unknown. SOCIAL HISTORY: Former smoker. According to records he was a pot smoker, age stopped 23. Denies alcohol use and denies any substance use. MEDICATIONS: (CURRENT HOME) Memantine 10 mg twice a day Donepezil 10 mg daily Aspirin 81 mg daily Multivitamin one daily Diclofenac 75 mg daily Losartan 50 mg twice a day Vitamin B12 1000 mcg injection as directed Gabapentin 200 mg twice a day Lopressor 12.5 mg twice a day ALLERGIES: NKDA REVIEW OF SYSTEMS: CONSTITUTIONAL: He does report fever and chills. No reports of nightsweats or weight changes. HEENT: Does have a history of headaches. No reports of nasal drainage or sore throat. CARDIOVASCULAR: No reports of chest pain, irregular rhythm or orthopnea. He does complain of some dyspnea. He has had some left lower extremity swelling. He does report this is chronic at times. LUNGS: As noted above, he has had some dyspnea and some pneumonia symptoms as well as some cough and congestion. GI: No complaints of abdominal pain, nausea, vomiting, diarrhea, constipation. No reports of blood in the stool. : Does have some chronic urinary incontinence. No reports of hematuria, nocturia. 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 This left lower extremity is red on admission and Dr. Cummins is concerned about possible infection and x-rays have been ordered. NEUROLOGIC: Does complain of some weakness. No reports of dizziness or syncopal episode. PSYCHIATRIC: No complaints of anxiety, depression or mood changes. ENDOCRINE: No reports of diabetes mellitus or thyroid disease. INTEGUMENT: He does have some redness to the left lower extremity otherwise no lesions or skin changes reported. PHYSICAL EXAMINATION: GENERAL: He is alert and oriented. VITAL SIGNS: On admission, temperature 99.8, pulse rate 87, blood pressure 139/ 77, respiratory rate 20, 02 sat 92%. This is on room air. Height 6', weight 175 lbs. HEENT: Head is normocephalic, atraumatic. Pupils equal/reactive to light. Mucous membranes are moist. NECK: Supple. No lymphadenopathy. No thyromegaly. No carotid bruits auscultated. CARDIOVASCULAR: Audible and slightly irregular. No JVD. He does have some left lower extremity edema. The left lower extremity is warm to touch and red. There is an intramedullary kim that stabilizes the knee with a history of a left knee replacement that has gotten infected. It is warm to touch compared to the right. LUNGS: He does have some rales at both bases that are fine. There are no expiratory wheezes. ABDOMEN: Soft, nontender. Bowel sounds are positive. NEUROLOGIC: Cranial nerves 2-12 are grossly intact. No overt neurological deficit. No stroke like stymptoms. SKIN: Warm and dry. He does have again some redness and swelling to the left lower extremity. LABS AND DIAGNOSTIC TESTING ON ADMISSION: White count 16.26, red blood cells 4.53. His hemoglobin 14.6, hematocrit 42.3, platelet count 170. Chemistry panel sodium 133.5, BUN 17.5, creatinine 1.03. His hemoglobin A1C is 5.55%. CK-MB 2.450, troponin less than 0.012, procalcitonin 0.30. Urinalysis negative. Trace bacteria. CT of the chest showed left basilar consolidation consistent with pneumonia. Minimal right basilar atelectasis and/or pneumonia. ASSESSMENT: 1. LEFT AND RIGHT BASILAR PNEUMONIA. 2. RIGHT LOWER EXTREMITY REDNESS AND SWELLING WITH HISTORY OF AN INFECTION TO THE LEFT KNEE REPLACEMENT IN THE PAST AND STATUS POST KIM PLACEMENT TO THE LEFT KNEE THAT STABILIZES THAT LEFT KNEE. 3. PERIPHERAL ARTERIAL DISEASE. 4. PRE DIABETES. 5. HYPERTENSION. 6. HEARING LOSS. 7. EXERTIONAL DYSPNEA. 8. CHRONIC KIDNEY DISEASE. 9. HISTORY OF DEGENERATIVE JOINT DISEASE. 10. HISTORY OF BIFRONTAL HEADACHES. 11. HISTORY OF LEFT TRIGEMINAL NEURALGIA. PLAN: The patient is receiving Ceftriaxone 2 gm every 24 hours and Doxycycline 100 mg every 12 hr. His sugar is at a controlled level. Fasting was 139.2 on admission , procalcitonin on admission 0.35. Per Dr. Cummins he was to obtain another procalcitonin that day because of the swelling and redness of the left leg and foot. He was concerned about the left leg and he had ordered x-rays of that leg , ankle and foot. He was concerned that he may need to transfer to another facility for this problem. His EGFR was 68. He stated that he would probably discontinue the Doxycycline and give him Vancomycin 1 gm every 12 hours and see if this would improve his left lower extremity. Further orders and recommendations were Dr. Cummins. TIME SPENT: GREATER THAN 65 MINUTES MTDD
[2018-09-30] MEDS: VANCOMYCIN 1.5 GM in SODIUM CHLORIDE 500 ML IV SCH (20:46)
[2018-09-30] MEDS: ASPIRIN EC PO SCH (20:47)
--- NOTE | 2018-10-01 00:04 | CT ---
Exam: CT left lower extremity without contrast History: Swelling and redness with hardware Technique: [address] of the LAD lower leg from the femur through the ankle. FINDINGS: Circumferential swelling of the subcutaneous fat most prominent in the upper portion of th e lower leg. No soft tissue gas or organizing collection is seen. Atrophy of the lower leg musculat ure. No inflammation of the deep soft tissues. Atherosclerotic vascular calcifications are present. Intramedullary vijay of the tibia and femur across the knee. No suspicious peripheral lucency is see n. Impression: 1. Subcutaneous edema and lower leg. No abscess or free intraperitoneal gas is seen. 2. Long intramedullary femoral and tibial vijay. No suspicious bony lucencies are seen.
[2018-10-01] MEDS: ALBUTEROL 0.042% NEB NEB SCH ×4 (04:46→20:25)
[2018-10-01] MEDS: COZAAR PO SCH ×2 (08:08→21:23)
[2018-10-01] MEDS: LOPRESSOR PO SCH ×2 (08:08→21:23)
[2018-10-01] MEDS: ARICEPT PO SCH (08:09)
[2018-10-01] MEDS: NEURONTIN PO SCH ×2 (08:09→21:23)
[2018-10-01] MEDS: NAMENDA PO SCH ×2 (08:10→13:13)
[2018-10-01] MEDS: LOVENOX SUBCUT SCH (08:11)
[2018-10-01] MEDS: ROCEPHIN 2 GM in SODIUM CHLORIDE 50 ML IV SCH (08:21)
--- NOTE | 2018-10-01 14:36 | DI ---
EXAM: Chest two views HISTORY: Pneumonia. FINDINGS: Compared to 06/12/2017. Heart size is within normal limits. There is ectasia of the aort a. No pneumothorax is identified. Probable small left pleural effusion. There appears to be consol idation in the left base. No vascular congestion. IMPRESSION: 1. Left basilar consolidation could represent atelectasis or pneumonia. Recommend follow-up chest i maging to assure clearance and help exclude underlying pathology.
[2018-10-01] MEDS ORDERED: VANCOMYCIN 1,500 MG in SODIUM CHLORIDE 500 ML IV SCH (21:00)
[2018-10-01] MEDS: ASPIRIN EC PO SCH (21:23)
[2018-10-01] MEDS: VANCOMYCIN 1 GM in SODIUM CHLORIDE 250 ML IV SCH (21:24)
[2018-10-01] MEDS ORDERED: VITAMIN B-12 IM SCH (22:00)
[2018-10-02] MEDS: ALBUTEROL 0.042% NEB NEB SCH ×3 (05:05→14:04)
[2018-10-02] MEDS: COZAAR PO SCH (08:44)
[2018-10-02] MEDS: NEURONTIN PO SCH (08:44)
[2018-10-02] MEDS: ARICEPT PO SCH (08:44)
[2018-10-02] MEDS: LOPRESSOR PO SCH (08:45)
[2018-10-02] MEDS: VANCOMYCIN 1 GM in SODIUM CHLORIDE 250 ML IV SCH (08:45)
[2018-10-02] MEDS: NAMENDA PO SCH ×2 (09:08→14:38)
[2018-10-02] MEDS: ROCEPHIN 2 GM in SODIUM CHLORIDE 50 ML IV SCH (09:08)
[2018-10-02] MEDS: LOVENOX SUBCUT SCH (09:08)
[2018-10-02 18:00] VITALS: BP 152/84; TEMP 98
--- NOTE | 2018-10-15 11:22 | DS ---
DATE OF SERVICE: 10/02/18 PATIENT IDENTIFICATION: The patient was admitted to the hospital via the emergency room because of left lower lobe pneumonia. His problem began about three days or more prior to presentation to the emergency room. He felt weak and tired with cough and fever. He had shortness of breath on exertion. He also had pain in the right lateral chest wall. There was no injury. The patient recorded peak fever of 101.5 at home. The patient indeed has rales left lower lobe but no wheezing. Heart is audible and slightly irregular. Abdomen unremarkable. 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 There is edema on the left leg. Left leg has some swelling and redness, source undetermined. Initial CBC showed mild to moderate leukocytosis 16,000 +. Pneumonia was detected by chest CT without contrast. Blood cultures were obtained from the emergency room. The patient received the following antibiotic Doxycycline 100 mg initially in the emergency room then every 12 hours, Rocephin 1 gm in the emergency room and was increased to 2 gm daily after the emergency room dose. He was also placed on Vancomycin the following day 09/27/18. Vancomycin was added because of the redness in the left leg and warm to touch. Reason for the cellulitis is unknown. The patient's repeat CBC on the same day showed decreasing WBC 12,750 from 16,260. The arterial blood gases in the emergency room showed moderate hypoxemia. Oxygen saturation 94, p02 63, pH 7.482, pc02 27.4 slightly below normal range. HC03 20.5, total c02 21. The patient continued to improve on the above antibiotics and had low grade temperature on admission. Since then temperature had returned to normal and remained normal until discharge. His appetite remained quite well eating anywhere from 50 to 100% of each meal. Blood cultures were negative after five days and swelling of the left leg and redness has decreased and almost completely resolved at the time of discharge. [id number] was present at the time. I had explained to the patient about the gravity of infection with hardware involved. I don't know whether the infection did involve the hardware that is in the left leg. Chest x-ray done yesterday showed a patchy density in the left lower lobe indicating a pneumonic process. He had not had any fever however in the last six days and his appetite is good and he has no dyspnea or tachypnea. His blood cultures also were negative. The patient at the time of discharge was alert, ambulatory. Vital signs 10/02/18 showed temperature 98 orally, pulse 77, blood pressure 150/84, respiratory rate 20, oxygen saturation 98 on room air. The patient had 100% breakfast, 50% lunch , 100% supper. The lungs still have few rales but much less than admission. No wheezing. Heart is audible, slightly irregular, not tachycardic. Left leg still has edema and redness is almost completely resolved and is no longer warm to touch or slightly only. The patient was then prescribed Bactrim DS to be taken one tablet twice a day and seem me in about one week at the office or before if there are any concerns. He should resume all of his home medications. He is advised to keep the left leg elevated or both legs. He was advised to avoid any undue sun exposure. Prescriptions for Bactrim DS #15 one twice a day. He is to resume all of his previous medications and see me in one week. Call the office for appointment. FINAL DIAGNOSES: 1. Left lower lobe pneumonia, resolving. 2. Left leg cellulitis, resolving, etiology undetermined. 3. Hardware left lower leg and knee and femur. 4. 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 5. Hearing loss, severe. 6. Chronic kidney disease Stage 3. 7. History of trigeminal neuralgia left side. 8. Hypertension, treated, controlled. 9. Peripheral arterial disease. 10. History of MCI. TIME SPENT: GREATER THAN 30 MINUTES MTDD
--- NOTE | 2018-10-25 11:57 | PN ---
DATE OF SERVICE: 09/30/18 SUBJECTIVE: On this date vital signs were; temperature 98.4, pulse rate 79, blood pressure 146/81, respiratory rate 20 and oxygen saturation 98% on room air. He was running sinus arrhythmia with a first degree AV block and a bundle branch block , 70-80 beats per minute on telemetry monitoring. He tells me that he is feeling overall well. LUNGS: Clear HEART: Regular rate and rhythm EXTREMITIES: No further redness to his left lower extremity. He had a negative venous study. He has been up walking in the [place]. He denies any complaints of shortness of breath. Again his lungs are clear. Heart is regular rate and rhythm. No complaints voiced today. СВЕТЛАНА
--- NOTE | 2018-11-18 16:13 | PN ---
DATE OF SERVICE: 09/27/18 SUBJECTIVE: This is an 88 year old male who was admitted to the hospital because of pneumonia left side and minimal right. The patient does have some rales at both bases, fine. No expiratory wheezing. Heart is audible and slightly irregular. The patient is on telemetry. The patient claims that he is feeling better. The left leg, however, is warm to touch and red. This patient has an intramedullary vijay that stabilizes the knee. 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 It is warm to touch and red compared to the right. I am not sure where this infection is coming from. An x-ray of the leg, ankle and foot is ordered today. There is no skin breaks noted. The patient is receiving Triaxin 2 grams every 24 hours and Doxycycline 100 mg Q 12 hours. His sugar was in the controlled level fasting today is 139.2 . Procalcitonin on admission was 0.35. We will obtain another procalcitonin today because of the swelling and redness of the left leg and foot. I am concerned about the left leg and he may need to be transferred to another facility for this problem. His EGFR is 68 today and will probably discontinue the Doxycycline and give him Vancomycin 1 gram Q 12 hours. We will see if this will improve the problem in the left leg. СВЕТЛАНА
--- NOTE | 2018-11-19 15:52 | PN ---
DATE OF SERVICE: 09/28/18 SUBJECTIVE: This patient is an 88 year old male feeling better. He was admitted because of left basilar pneumonia. Hardware intramedullary vijay because of failed left TKR with infection. He claims to be doing better and appetite better. His vital signs at 2:00 p.m. on 09/28/18 showed temperature 98.2, pulse 68, blood pressure 156/86, respiratory rate 16, oxygen saturation 95 at room air. His appetite seemed to be okay with 25% breakfast, 75% lunch and 100% supper. General appearance is good. He is not dyspneic or tachypneic. Lungs show left basilar rales. Heart is audible and slightly irregular, not tachycardic and no murmurs. The abdomen is soft and nontender. Left leg mostly from the knee down distal-wards is still red and warm to touch. It is still 1+ pitting edema. The patient had polio in the past resulting in a smaller right lower leg or extremity. Blood cultures are negative. CBC with normal WBC now 6,663; it was 16,260 on admission. Procalcitonin is 0.26 and the rest of the chemistries are unremarkable. The patient is receiving Ceftriaxone 2 grams intravenously daily and Vancomycin 1 gram Q 12 hours intravenously. The Vancomycin was changed to 1.5 grams Q 24 hours instead of 1 gram Q 12 hours per pharmacy recommendation. The patient is also on Doxycycline 100 mg Q 12 hours intravenously. His condition improved. The patient had x-rays of the left leg as well as ankle and foot and also left knee. They were negative for any acute abnormalities. No diffuse subcutaneous edema was noted. Hardware is intact. We will probably do further testing such as CT scan or even an MRI if the problem does not improve. СВЕТЛАНА
--- NOTE | 2018-11-20 10:48 | PN ---
DATE OF SERVICE: 09/29/18 SUBJECTIVE: This is a an 88 year old male who is in the hospital because of left lower lobe pneumonia and redness of the left leg with hardware. He claims, again, that he is feeling better and his appetite is better. The vital signs on 09/29/18 at 2:00 p.m. showed a temperature of 97.6 oral, pulse 68, blood pressure 137/73, respiratory rate 18, oxygen saturation 97 at room air. His appetite is better than yesterday at 75% breakfast, 100% lunch and 100% supper. He has been afebrile since admission. His admission temperature was 99.8. Blood cultures were negative. He is alert and oriented x4, not dyspneic or tachypneic. This patient has some mild senile dementia. Lungs have rales of the left base. Heart is audible and slightly irregular, no murmurs. Abdomen is unremarkable. Left lower leg redness is less but still with edema. No labs were done. General condition is improved. MTDD
--- NOTE | 2018-11-20 11:05 | PN ---
DATE OF SERVICE: 09/30/18 SUBJECTIVE: The patient had Doppler studies done yesterday and the left lower extremity showed no venous thrombosis. The swelling of the left leg as well as redness is less. It is still warm but much less. The patient claims that his leg is looking normal to him. I did advise him that I am concerned about the swelling and redness because of the hardware that is in the left leg including the knee. Lung still has rales of the left base but no wheezing. Heart still is slightly irregular but not tachycardic. Abdomen is soft and nontender. CAT scan of the left leg done today showed subcutaneous edema, no abscess or free gas, long intramedullary femoral tibial vijay, no suspicious bony lucencies are seen. Vitals signs at 2:00 p.m. on 09/30/18 temperature 98.5 oral, pulse 72, blood pressure 149/85, respiratory rate 18, oxygen saturation 96 at room air. The blood culture was still negative for any growth. CBC today showed normal WBC 5, 350, hemoglobin 14.9, hematocrit 43.6. Chemistry is unremarkable with minimal abnormalities, not clinically significant. The procalcitonin now is down to less than 0.05. He will be continued on the antibiotic. 1. Pneumonitis is improved 2. Cellulitis left leg, improved 3. Left leg knee and femur with no obvious signs of infection I repeated again to the patient that I don't know why there was some redness in the left leg. There is no areas of skin break identified since admission. [facility]
--- NOTE | 2018-11-20 11:13 | PN ---
DATE OF SERVICE: 10/01/18 SUBJECTIVE: This 88 year old male is improving and much better and stronger. He was admitted for left lower lobe pneumonia but while in the hospital developed redness of the left leg with the source unexplainable. There were no skin breaks. The patient was treated with antibiotic because of the pneumonia and also for the redness of the leg. The redness has decreased remarkably as well as swelling but the swelling is persistent. He is feeling better and he claims since yesterday that his left leg is now normal or it is normal to him. The left leg is always bigger and also has some swelling. He had a left knee TKR that got infected and the hardware was removed and later on a vijay was inserted to aid in his mobility. He is alert and oriented today, not dyspneic or tachypneic and no cyanosis. Temperature is 97.9 orally, pulse 74, blood pressure 134/74, respiratory rate 18 , oxygen saturation 94 at room air. His appetite seems to be good 100% breakfast, 75% lunch and 50% supper. He has no nausea or anorexia. He has no abdominal pain. He still has rales of the left lower base. Heart is still slightly irregular, not tachycardic. Abdomen is unremarkable. Redness of the left is much less as well as the swelling. Labs today show WBC 5,350. Chemistry is unremarkable with some slight abnormalities and the procalcitonin is less than 0.05. PLAN: The patient will be continued on the same antibiotics. MTDD
== END 2018-10-02 19:15 | disposition home or self-care (01) | DRG 195 ==
LOC: ED 18:30 → MEDSURG B 20:28
PROVIDERS: ADMIT General Practice; ATTEND General Practice
DX: R73.03 Prediabetes; H91.90 Unspecified hearing loss, unspecified ear; I73.9 Peripheral vascular disease, unspecified; R06.00 Dyspnea, unspecified; J18.1 Lobar pneumonia, unspecified organism; R60.0 Localized edema; R05 Cough; R50.9 Fever, unspecified; N18.3 Chronic kidney disease, stage 3 (moderate); J06.9 Acute upper respiratory infection, unspecified; I10 Essential (primary) hypertension